=== PATIENT | male | born 1960 | race Two or more races ===

== ENCOUNTER → 2017-01-09 | Outpatient (CLI) | payer OTHER ==
[~2017-01-09] MED LIST: CYCL1TAB29 PO; ENAL20TA PO; GEMF600T PO; GLUCTES27; INSU-150; LANCETS1 MI1; LEVEMIR SQ; LIPI40TA PO; NOVOLOGP2 SQ; PROP20TA3 PO; SUMA50TA2 PO
[2017-01-09 13:00] LABS: HEMOGLOBIN A1a 1.2 %; HEMOGLOBIN A1b 0.9 %; HEMOGLOBIN F 1.4 %; HEMOGLOBIN LA1C 2.2 %
== END ==
LOC: CLAB 09:18
PROVIDERS: ATTEND Nurse Practitioner Family
DX: E11.65 Type 2 diabetes mellitus with hyperglycemia (principal)
CPT/HCPCS: 36415; 83036

== ENCOUNTER → 2017-04-04 | Outpatient (CLI) | payer OTHER ==
[~2017-04-04] MED LIST changes: +METO25TA3 PO
[2017-04-04 10:58] LABS: HEMOGLOBIN A1a 1.3 %; HEMOGLOBIN A1b 0.9 %; HEMOGLOBIN Ao 79.9 %; HEMOGLOBIN F 1.4 %; HEMOGLOBIN LA1C 2.5 %; HEMOGLOBIN P3 4.3 %
[2017-04-04 11:07] LABS: HDL CHOLESTEROL 45.7 MG/DL (40.0-60.0); LDL CHOLESTEROL 129 MG/DL (0-99)
== END ==
LOC: CLAB 09:52
PROVIDERS: ATTEND Nurse Practitioner Family
DX: E78.2 Mixed hyperlipidemia (principal); E11.9 Type 2 diabetes mellitus without complications
CPT/HCPCS: 36415; 80061; 83036